=== PATIENT | male | born 1965 | race African-American/Black ===

== ENCOUNTER 2018-07-09 16:50 | Emergency (ER) | payer MEDICAID, OTHER ==
[~2018-07-09] VITALS: Ht 157.5 cm; Wt 54.4 kg
[2018-07-09] MEDS ORDERED: Isovue-300 100ml vial INJ PRN (17:15)
[2018-07-09 18:11] LABS: HEMATOCRIT 25.9 % (42.0-52.0); HEMOGLOBIN 8.9 G/DL (14.2-18.0); MEAN CORPUSCULAR VOLUME 96 FL (80-99); PLATELET COUNT 99 K/UL (150-450); RED CELL DISTRIBUTION WIDTH 14.8 % (11.6-14.8); WHITE BLOOD COUNT 4.6 K/UL (4.8-10.8)
[2018-07-09 18:17] VITALS: BP 120/65
[2018-07-09 18:45] LABS: ALANINE AMINOTRANSFERASE 10 U/L (12-78); ALBUMIN 1.3 G/DL (3.4-5.0); ALBUMIN/GLOBULIN RATIO 0.6 (1.0-2.7); ALKALINE PHOSPHATASE 36 U/L (46-116); ANION GAP 8 mmol/L (5-15); ASPARTATE AMINO TRANSFERASE 14 U/L (15-37); BLOOD UREA NITROGEN 13 mg/dL (7-18); CARBON DIOXIDE 23 MMOL/L (21-32); CHLORIDE 117 MMOL/L (98-107); CREATININE 0.7 MG/DL (0.55-1.30); SODIUM 147 MMOL/L (136-145)
[2018-07-09 19:01] LABS: POTASSIUM 2.4 MMOL/L (3.5-5.1)
[2018-07-09 19:02] LABS: BILIRUBIN,DIRECT 0.6 MG/DL (0.0-0.3)
--- NOTE | 2018-07-09 19:05 | Emergency Room Report ---
History of Present Illness General Chief Complaint: Generalized Weakness Source: Patient Present Illness HPI 52-year-old male presents ED for evaluation. Patient brought in by EMS for weakness and lethargy. Friends called 911 stating that patient has been nonverbal and refusing to eat for several days. Per friends patient had received news of penile cancer while being evaluated at [facility]. Friends told EMS that patient did not receive the news very well. Upon arrival patient refusing to answer any questions. No signs of distress. No fevers or chills. No nausea or vomiting. No other aggravating relieving factors. No other associated symptoms Allergies: Coded Allergies: No Known Allergies (Unverified , 07/09/18) Patient History Past Medical History: none Past Surgical History: none Pertinent Family History: none Social History: Denies: smoking, alcohol use, drug use Immunizations: UTD Reviewed Nursing Documentation: PMH: Agreed; PSxH: Agreed Nursing Documentation-PM Past Medical History: No Stated History Review of Systems All Other Systems: negative except mentioned in HPI Physical Exam Vital Signs Date Time Temp Pulse Resp B/P (MAP) Pulse Ox O2 Delivery O2 Flow Rate FiO2 07/09/18 16:45 98.8 58 19 120/65 99 Room Air Sp02 EP Interpretation: reviewed, normal General Appearance: alert, non-toxic, other - not answering questions Head: normocephalic, atraumatic Eyes: bilateral eye normal inspection, bilateral eye PERRL ENT: hearing grossly normal, normal pharynx, no angioedema, normal voice Neck: full range of motion, supple/symm/no masses Respiratory: chest non-tender, lungs clear, normal breath sounds, speaking full sentences Cardiovascular #1: regular rate, rhythm, no edema Cardiovascular #2: 2+ carotid (R), 2+ carotid (L), 2+ radial (R), 2+ radial (L) , 2+ dorsalis pedis (R), 2+ dorsalis pedis (L) Gastrointestinal: normal bowel sounds, soft, non-distended, no guarding, no rebound, tenderness Rectal: deferred Genitourinary: no CVA tenderness, other - scrotal swelling Musculoskeletal: back normal, gait/station normal, normal range of motion, non- tender Neurologic: alert, motor strength/tone normal, sensory intact, other - not answering questions Psychiatric: depressed affect, anxious Reflexes: 3+ bicep (R), 3+ bicep (L), 3+ tricep (R), 3+ tricep (L), 3+ knee (R) , 3+ knee (L) Skin: normal color, no rash, warm/dry, well hydrated Lymphatic: no adenopathy Medical Decision Making Diagnostic Impression: Primary Impression: Episode of generalized weakness Additional Impressions: Hypokalemia Transaminitis Ascites Qualified Codes: R18.8 - Other ascites Hydrocele Qualified Codes: N43.3 - Hydrocele, unspecified ER Course Hospital Course 52-year-old male presents with abdominal distention, pain, weakness. Friends called 911 Differential diagnoses include: dehydration, FTT, SBO Clinical course Patient placed on stretcher. gambling monitor. After initial history and physical I ordered labs, IV fluids, UA, pain medication and CT scan Labs - no leukocytosis, Hb/Hct stable. Na 147, K 2.4, LFTs diffusely elevated CT abdomen and pelvis - ascites noted, status post TIPS in liver, large hydrocele in both scrotum EKGnormal sinus rhythm no acute ischemic changes interpreted by me Potassium repleted. Given IV fluids. Patient was reportedly given information about possible penile cancer at [facility]. Patient is not providing any additional history at this time. Patient is awake and alert but not answering questions. Possible psychiatric condition versus conversion disorder Because of insurance patient will be transferred I feel this is a highly complex case requiring extensive working including EKG/ Rhythm strip, Xray/CT/US, Blood/urine lab work, repeat exams while in ED, and administration of strong opiates/narcotics for pain control, admission to hospital or close patient follow up. Diagnosis - transaminitis, ascites, hydrocele, episode of generalized weakness, hypokalemia Transferred in serious condition Labs Test 07/09/18 17:58 White Blood Count 4.6 K/UL (4.8-10.8) Red Blood Count 2.70 M/UL (4.70-6.10) Hemoglobin 8.9 G/DL (14.2-18.0) Hematocrit 25.9 % (42.0-52.0) Mean Corpuscular Volume 96 FL (80-99) Mean Corpuscular Hemoglobin 32.8 PG (27.0-31.0) Mean Corpuscular Hemoglobin Concent 34.3 G/DL (32.0-36.0) Red Cell Distribution Width 14.8 % (11.6-14.8) Platelet Count 99 K/UL (150-450) Mean Platelet Volume 6.6 FL (6.5-10.1) Neutrophils (%) (Auto) % (45.0-75.0) Lymphocytes (%) (Auto) % (20.0-45.0) Monocytes (%) (Auto) % (1.0-10.0) Eosinophils (%) (Auto) % (0.0-3.0) Basophils (%) (Auto) % (0.0-2.0) Differential Total Cells Counted 100 Neutrophils % (Manual) 73 % (45-75) Lymphocytes % (Manual) 15 % (20-45) Monocytes % (Manual) 7 % (1-10) Eosinophils % (Manual) 3 % (0-3) Basophils % (Manual) 0 % (0-2) Band Neutrophils 2 % (0-8) Platelet Estimate Decreased Platelet Morphology Normal Red Blood Cell Morphology Normal Hypochromasia 1+ Sodium Level 147 MMOL/L (136-145) Potassium Level 2.4 MMOL/L (3.5-5.1) Chloride Level 117 MMOL/L (98-107) Carbon Dioxide Level 23 MMOL/L (21-32) Anion Gap 8 mmol/L (5-15) Blood Urea Nitrogen 13 mg/dL (7-18) Creatinine 0.7 MG/DL (0.55-1.30) Estimat Glomerular Filtration Rate > 60 mL/min (>60) Glucose Level 64 MG/DL (74-106) Calcium Level 7.0 MG/DL (8.5-10.1) Total Bilirubin 2.0 MG/DL (0.2-1.0) Direct Bilirubin 0.6 MG/DL (0.0-0.3) Aspartate Amino Transf (AST/SGOT) 14 U/L (15-37) Alanine Aminotransferase (ALT/SGPT) 10 U/L (12-78) Alkaline Phosphatase 36 U/L (46-116) Total Protein 3.3 G/DL (6.4-8.2) Albumin 1.3 G/DL (3.4-5.0) Globulin 2.0 g/dL Albumin/Globulin Ratio 0.6 (1.0-2.7) Lipase 117 U/L (73-393) EKG Diagnostic Results Rate: bradycardiac Rhythm: NSR ST Segments: no acute changes ASA given to the pt in ED: No Rhythm Strip Diag. Results EP Interpretation: yes Rhythm: no PVC's, no ectopy CT/MRI/US Diagnostic Results CT/MRI/US Diagnostic Results : Imaging Test Ordered: CT A./P Impression IMPRESSION: 1. Very large right hydrocele and mild/moderate left hydrocele. Further evaluation could be performed with ultrasound if clinically indicated. 2. Similar abnormal appearance of the liver with atrophy and biliary dilatation. Probable cirrhosis. TIPS in place. 3. Similar splenomegaly with diffuse calcifications. 4. Small to moderate amount of ascites. Nonspecific 2.7 cm cystic structure along the right retroperitoneum lateral to the right kidney. Last Vital Signs Date Time Temp Pulse Resp B/P (MAP) Pulse Ox O2 Delivery O2 Flow Rate FiO2 07/09/18 18:17 98.8 58 19 120/65 99 Room Air Status: improved Disposition: XFER SHT-TRM HOSP Condition: Serious Scripts No Active Prescriptions or Reported Meds Referrals: NON PHYSICIAN (PCP) Ghulam Barnard MD Jul 09, 2018 19:05
[2018-07-09] MEDS ORDERED: NS w/KCl 40mEq 1,000 ML IV SCH (19:15)
[2018-07-09 19:19] VITALS: BP 125/54
[2018-07-09 21:05] LABS: APPEARANCE,URINE SLIGHTLY CLOUDY; BILIRUBIN, URINE NEGATIVE (NEGATIVE); COLOR,URINE AMBER; GLUCOSE, URINE (UA) NEGATIVE (NEGATIVE); KETONES,URINE NEGATIVE (NEGATIVE); LEUKOCYTE ESTERASE ,URINE 1+ (NEGATIVE); NITRITE,URINE NEGATIVE (NEGATIVE); PH,URINE 5 (4.5-8.0); PROTEIN,URINE NEGATIVE (NEGATIVE); UROBILINOGEN,URINE NORMAL MG/DL (0.0-1.0)
[2018-07-09 22:10] VITALS: BP 126/65
[2018-07-09 22:44] VITALS: BP 125/65
== END 2018-07-09 22:44 | disposition short-term general hospital (02) ==
LOC: EDBD 16:50 → EMR 17:10
DX: R53.1 Weakness (principal); E87.6 Hypokalemia; R74.0 Nonspecific elevation of levels of transaminase and lactic acid dehydrogenase [LDH]; R18.8 Other ascites; N43.3 Hydrocele, unspecified; Z85.89 Personal history of malignant neoplasm of other organs and systems
CPT/HCPCS: 36415; 74177; 80053; 81003; 82248; 83690; 85007; 85025; 87086; 93005; 96361; 96374; 99285; Q9967